=== PATIENT | female | born 1965 | race Caucasian/White ===

== ENCOUNTER 2016-10-24 07:52 | Emergency (ER) | payer BC ==
[~2016-10-24] VITALS: Ht 167.6 cm; Wt 90.9 kg
[~2016-10-24 07:52] MED LIST: ATARAX 25MG25 MG/TAB PO; CALCIUM CITRATE1 TA1 PO; CATAPRES 0.1MG0.1 MG PO; CATAPRES0.2 MG PO; CATAPRES0.3 MG PO; CELEXA 20MG20 MG/TAB PO; CELEXA40 MG PO; CENTRUM SILVER1 TAB; COZAAR100 MG PO; EFFEXOR 75M75 MG/TAB PO; FLEXERIL 1010 MG/TAB PO; HCTZ 25MG TAB25 MG PO; LEVAQUIN 5500 MG/TA1 PO; LORTAB 5/500 501 TAB; NABUMETONE500 MG PO; NATURE'S BLE1000 MCG PO; NEXIUM 40MG40 MG PO; NORVASC 10MG10 MG PO; PHENERGAN W/CO120 M1 PO; PREDNISONE10 MG PO; PROVENTIL0.09 MG/A1 IH; RT ADVAIR 528 DISKUS IH; RT ALBUTER2.5 MG/0.5 IH; RT SPIRIVA18 MCG IH; VICODIN 5/300 PO; VITAMIN B-1000 MCG/T PO; WELLBUTRIN XL150 MG PO; ZOLOFT 50MG50 MG PO
[2016-10-24 07:55] VITALS: TEMP 98
[2016-10-24] MEDS ORDERED: NORVASC 5MG5 MG/TAB PO (09:20)
[2016-10-24] MEDS ORDERED: NORCO 325 MG-51 TAB PO (10:07)
[2016-10-24 10:33] VITALS: BP 127/88; PULSE 70
== END 2016-10-24 10:33 | disposition home or self-care (01) ==
LOC: COL.ER 07:52
DX: I10 Essential (primary) hypertension (principal); R51 Headache; R11.0 Nausea; T50.2X6A Underdosing of carbonic-anhydrase inhibitors, benzothiadiazides and other diuretics, initial encounter
CPT/HCPCS: J1885; J2405; J2765; J7030

== ENCOUNTER 2018-01-08 11:14 | Emergency (ER) | payer BC ==
[~2018-01-08] VITALS: Ht 167.6 cm; Wt 85.9 kg
[~2018-01-08 11:14] MED LIST changes: +NORCO 325 MG-51 TAB PO; +NORVASC 5MG5 MG/TAB PO
[2018-01-08 11:25] VITALS: TEMP 99.1
[2018-01-08 11:55] VITALS: BP 144/98
[2018-01-08 13:32] VITALS: PULSE 91
== END 2018-01-08 13:33 | disposition home or self-care (01) ==
LOC: COL.ER 11:14
DX: G89.29 Other chronic pain (principal); M54.2 Cervicalgia; I10 Essential (primary) hypertension; G43.909 Migraine, unspecified, not intractable, without status migrainosus; F32.9 Major depressive disorder, single episode, unspecified; Z87.891 Personal history of nicotine dependence
CPT/HCPCS: J1885

== ENCOUNTER 2019-04-19 09:08 | Emergency (ER) | payer BC ==
[~2019-04-19] VITALS: Ht 167.6 cm; Wt 99.1 kg
[2019-04-19 09:15] VITALS: TEMP 98.3
[2019-04-19 11:56] LABS: BASO # 0.1 (0.0-0.2); BASO % 1.1 % (0.0-2.0); EOS # 0.2 (0.0-0.7); EOS % 5.2 % (0-4.0); GRAN # 2.4 (1.4-6.5); GRAN % 51.7 % (42.2-75.2); HEMATOCRIT 41.4 % (37.0-47.0); HEMOGLOBIN 14.4 g/dl (12.5-16.0); LYMPH # 1.7 (1.2-3.4); LYMPH % 37.1 % (20.0-51.0); MEAN CORPUSCULAR HEMOGLOBIN 37 pg (27.0-31.0); MEAN CORPUSCULAR HGB CONC 35 g/dl (33.0-37.0); MEAN PLATELET VOLUME 10.3 fl (7.4-10.4); MONO # 0.2 (0.1-0.6); MONO % 4.7 % (1.7-9.3); PLATELET COUNT 155 K/mm3 (130-400); RED BLOOD COUNT 3.93 M/mm3 (4.10-5.30); REDCELL DISTRIBUTION WIDTH-CV 12.6 % (11.5-14.5)
[2019-04-19 12:06] LABS: MEAN CELL VOLUME 105 fl (80.0-100.0)
[2019-04-19 12:08] LABS: ALBUMIN 3.8 gm/dL (3.5-5.0); BILIRUBIN,TOTAL 0.6 mg/dL (0.0-1.0); C-REACTIVE PROTEIN 0.6 mg/dL (0.0-0.9); CREATININE, serum 0.8 (0.52-1.25); POTASSIUM 3.6 mmol/L (3.4-5.0); TOTAL PROTEIN 6.7 gm/dL (6.4-8.2)
[2019-04-19] MEDS ORDERED: LEVAQUIN 750MG750 M1 PO (13:19)
[2019-04-19] MEDS ORDERED: PREDNISONE20 MG PO (13:19)
[2019-04-19 13:32] VITALS: BP 142/90; PULSE 71
== END 2019-04-19 13:32 | disposition home or self-care (01) ==
LOC: COL.ER 09:08
PROVIDERS: Physician Assistant
DX: J18.1 Lobar pneumonia, unspecified organism (principal); J44.1 Chronic obstructive pulmonary disease with (acute) exacerbation; I10 Essential (primary) hypertension; J44.9 Chronic obstructive pulmonary disease, unspecified; F32.9 Major depressive disorder, single episode, unspecified; Z90.710 Acquired absence of both cervix and uterus; Z87.891 Personal history of nicotine dependence; Z98.84 Bariatric surgery status
CPT/HCPCS: J7512

== ENCOUNTER 2019-04-29 11:14 | Emergency (ER) | payer OTHER ==
[~2019-04-29] VITALS: Ht 167.6 cm; Wt 99.1 kg
[~2019-04-29 11:14] MED LIST changes: +LEVAQUIN 750MG750 M1 PO; +PREDNISONE20 MG PO
[2019-04-29 11:20] VITALS: BP 123/86; PULSE 106; TEMP 96.4
[2019-04-29] MEDS ORDERED: NORCO 325 MG-51 TAB PO (11:41)
[2019-04-29] MEDS ORDERED: FLEXERIL 1010 MG/TAB PO (14:46)
== END 2019-04-29 15:22 | disposition home or self-care (01) ==
LOC: COL.ER 11:14
DX: S80.01XA Contusion of right knee, initial encounter (principal); S80.02XA Contusion of left knee, initial encounter; I10 Essential (primary) hypertension; F32.9 Major depressive disorder, single episode, unspecified; J44.9 Chronic obstructive pulmonary disease, unspecified; F17.210 Nicotine dependence, cigarettes, uncomplicated; R40.2412 Glasgow coma scale score 13-15, at arrival to emergency department; W01.0XXA Fall on same level from slipping, tripping and stumbling without subsequent striking against object, initial encounter; Y92.59 Other trade areas as the place of occurrence of the external cause

== ENCOUNTER 2020-07-29 15:41 | Outpatient (RCR) | payer SELFPAY ==
[~2020-07-29] VITALS: Ht 167.6 cm; Wt 97.1 kg
[2020-07-29] VITALS (10 sets, daily range): BP systolic 87–110; BP diastolic 52–87; PULSE 88–100; TEMP 98–98.6
== END 2020-07-29 21:14 | disposition home or self-care (01) ==
LOC: EUO 15:41
DX: D3A.8 Other benign neuroendocrine tumors (principal); D64.9 Anemia, unspecified; Z92.21 Personal history of antineoplastic chemotherapy
CPT/HCPCS: J1644; J7050; P9016

== ENCOUNTER 2020-08-17 13:25 | Inpatient (IN) | payer OTHER ==
[2020-08-17] VITALS (9 sets, daily range): BP systolic 153–172; BP diastolic 58–107; PULSE 77–89; TEMP 97.3–98.6
[~2020-08-17] VITALS: Ht 167.6 cm; Wt 88.5 kg
[2020-08-17 15:40] LABS: COLLECTION METHOD CLEAN CATCH
[2020-08-17 15:50] LABS: BUDDING YEAST Present /hpf; MUCOUS Present /lpf; PH 6 (5-8); SQUAMOUS EPITHELIAL None Seen /hpf; URINE APPEARANCE Turbid; URINE BACTERIA Rare /hpf; URINE BILIRUBIN Positive (NEGATIVE); URINE BLOOD Negative (NEGATIVE); URINE COLOR Amber; URINE GLUCOSE Negative (NEGATIVE); URINE KETONE Negative (NEGATIVE); URINE LEUKOCYTE ESTERASE 1+ (NEGATIVE); URINE NITRATE Negative (NEGATIVE); URINE PROTEIN(semi-quant) 1+ (NEGATIVE); URINE RBC None Seen /hpf; URINE UROBILINOGEN >=4.0 mg/dL (NEGATIVE)
[2020-08-17 16:50] LABS: MEAN CELL VOLUME 98 fl (80.0-100.0); MEAN CORPUSCULAR HGB CONC 30 g/dl (33.0-37.0); MEAN PLATELET VOLUME 10.2 fl (7.4-10.4); PLATELET COUNT 89 K/mm3 (130-400); RED BLOOD COUNT 2.17 M/mm3 (4.10-5.30); REDCELL DISTRIBUTION WIDTH-CV 18.8 % (11.5-14.5)
[2020-08-17 16:51] LABS: HEMATOCRIT 21.2 % (37.0-47.0); MEAN CORPUSCULAR HEMOGLOBIN 29 pg (27.0-31.0)
[2020-08-17 16:57] LABS: ALBUMIN 2.9 gm/dL (3.5-5.0); BILIRUBIN,TOTAL 1.9 mg/dL (0.0-1.0); CALCIUM 7.8 mg/dL (8.4-10.2); CREATININE, serum 0.48 (0.52-1.25); POTASSIUM 3.2 mmol/L (3.4-5.0); TOTAL PROTEIN 5.6 gm/dL (6.4-8.2)
[2020-08-17 17:00] LABS: HEMOGLOBIN 6.4 g/dl (12.5-16.0)
[2020-08-17 17:09] LABS: TROPONIN-I 0.031 ng/mL (0.000-0.035)
[2020-08-17 17:25] LABS: LACTIC ACID 1.4 mmol/L (0.4-2.0)
[2020-08-17 17:47] LABS: ANISOCYTOSIS 3+; LYMPHOCYTE 14 % (20.0-51.0); METAMYELOCYTE 1 % (0-0); MYELOCYTE 3 % (0-0); NEUTROPHILS 79 % (42.0-75.2); PLATELET ESTIMATE DECREASED (NORMAL); STOMATOCYTE 1+; TARGET CELLS 1+
[2020-08-17] MEDS ORDERED: NEXIUM 40MG40 MG PO (17:48)
[2020-08-17] MEDS ORDERED: DAZIDOX20 MG PO (17:49)
[2020-08-17 17:58] LABS: INR 1.4 (0.8-3.0); PROTHROMBIN TIME 16.1 SECONDS (9.7-12.8)
[2020-08-17] MEDS ORDERED: NORVASC 5MG5 MG/TAB PO (19:07)
[2020-08-18] VITALS (21 sets, daily range): BP systolic 109–143; BP diastolic 53–90; PULSE 64–138; TEMP 97.4–98.6
--- NOTE | 2020-08-18 00:42 | NUR ---
Pt refusing to finish bowel prep, approx 150mL consumed. EDER Richardson notified
[2020-08-18 00:46] LABS: HEMATOCRIT 24.8 % (37.0-47.0); HEMOGLOBIN 7.6 g/dl (12.5-16.0)
[2020-08-18 06:17] LABS: MEAN CELL VOLUME 96 fl (80.0-100.0); MEAN CORPUSCULAR HGB CONC 31 g/dl (33.0-37.0); MEAN PLATELET VOLUME 10.2 fl (7.4-10.4); PLATELET COUNT 86 K/mm3 (130-400); RED BLOOD COUNT 2.64 M/mm3 (4.10-5.30); REDCELL DISTRIBUTION WIDTH-CV 19.2 % (11.5-14.5)
[2020-08-18 06:24] LABS: HEMATOCRIT 25.3 % (37.0-47.0); HEMOGLOBIN 7.8 g/dl (12.5-16.0); MEAN CORPUSCULAR HEMOGLOBIN 30 pg (27.0-31.0)
[2020-08-18 06:27] LABS: ALBUMIN 2.9 gm/dL (3.5-5.0); BILIRUBIN,TOTAL 2.1 mg/dL (0.0-1.0); CALCIUM 7.5 mg/dL (8.4-10.2); CREATININE, serum 0.46 (0.52-1.25); MAGNESIUM 2.5 mg/dL (1.6-2.3); POTASSIUM 3.6 mmol/L (3.4-5.0); TOTAL PROTEIN 5.8 gm/dL (6.4-8.2)
--- NOTE | 2020-08-18 08:15 | NUR ---
Patient resting in bed. Rates pain 06/30. Home dose of oxycodone given per orders. Patient refused hctz & clonidine.
--- NOTE | 2020-08-18 09:45 | NUR ---
Tap water enema complete per doctor massey. yellow water output. patietn did not complete go Dr. Deirdre tate aware.
--- NOTE | 2020-08-18 10:09 | NUR ---
JOSIAS met with the patient to discuss discharge plan. The patient lives in [place] with her father, Aashish. She states that she moved back here from [place] in June. She reports needing occasional assistance with ADLs and has a walker. She states that she normally manages on her own or her aunt, Tatiana, helps her. The patient's PCP is Dr. Moiz Villalpando and she receives her medications from [facility] in [place]. The patient is self pay. She states that she has been utilizing [facility] for her medications. Financial Counseling was consulted and plan is to complete a Medicaid application. JOSIAS discussed this with the patient and presented the Release of Information Forms. The patient is interested in applying for Medicaid and signed the forms. JOSIAS faxed the forms to Anita with financial Counseling. The patient does not have a DPOA-HC, but she was interested in completing one. JOSIAS provided the patient with a form. She designated her brother, Ramez Mckay (ph#[phone]), and her cousin, Arelis Mcghee (ph#[phone]), as the alternate. Ramez lives in [place] and Arelis lives in [place]. JOSIAS and SURGERY SCHEDULER, Alize, witnessed the patient's signature. JOSIAS provided her with the original and some copies. JOSIAS placed a copy in the patient's chart. The patient plans to return home with her father upon discharge. JOSIAS then contacted and reviewed the above information with the patient's brother, Ramez. Ramez states that he thought the patient already applied for Medicaid. JOSIAS informed Anita with [facility] of this. Ramez reports no concerns with the patient returning back home, as long as the patient is okay with this. JOSIAS to continue to follow.
--- NOTE | 2020-08-18 11:42 | NUR ---
First visit from the pole truck driver. No needs right now.
--- NOTE | 2020-08-18 12:00 | NUR ---
Patient to Endo with Aurelia, Ns to gravity. Patient seems medicated after roxicodone, not drowsy though. Reports pain releif
--- NOTE | 2020-08-18 13:35 | NUR ---
ROUNDED. BLAND DIET ORDERED. SENAIT BULK WITH PALLATIVE CARE MADE AWARE OF CONSULT.
--- NOTE | 2020-08-18 13:35 | NUR ---
PATIENT REQUEST DIET. KENZIE VIGIL NOTIFED. CLEARS ORDER. K+ REPLACEMENT PER PROTOCOL. PATIENT REPORTS FEELING BETTER AFTER COLONSCOPY.
--- NOTE | 2020-08-18 14:17 | NUR ---
Initial visit; Patient thanked Pneumatic Tube Operator for stopping in and offering God's blessings.
--- NOTE | 2020-08-18 14:30 | NUR ---
HOSPITALIST NOTIFED. ORDERS FOR EKG. STUDIO ENGINEER CALLED, REPORTS AFIB WITH RVR.
--- NOTE | 2020-08-18 14:32 | NUR ---
I met with pt at bedside this afternoon to discuss her situation and goals of care. She is very anxious about getting started on treatment but also realizes that she will also need to have medicaid/SSI/disabilitiy to help with the costs. She is very firm that she does want to pursue treatment--even knowing that this treatment will not be a cure but rather a way to manage the cancer. Chemotherapy is not without side effects and her decision must be based on what is important to her--quality vs quantity. She has made contact with Dr De La Rosa and has another appt there on the . She is waiting on some decisions from [facility] about her situation as well. Her nurse also reported that she was in AFib with RVR now right after this conversation. She will continue to consider what her goals are but she is reporting wanting treatment.
--- NOTE | 2020-08-18 14:45 | NUR ---
HOSPITALIST HAS NO NEW ORDERS AT THIS TIME, MONITOR PATIENT CLOSELY.
--- NOTE | 2020-08-18 14:50 | NUR ---
STATUS UPDATE ON PATIENT GIVEN TO KENZIE VIGIL. PATIENT DIAPHORETIC. REPORTS BEING HOT. SEE VITALS.
--- NOTE | 2020-08-18 15:15 | NUR ---
SPOKE TO HOSPITALIST, PATIENT TO TRANSFER TO ICU. CAPTAIN CANNERY TENDER TO GET BED ASSIGNMENT. SECOND EKG PER ORDERS
[2020-08-18 15:58] LABS: TROPONIN-I 0.019 ng/mL (0.000-0.035)
--- NOTE | 2020-08-18 16:04 | NUR ---
Per orders Cardizem Qtt started at this time. VS currently 119/[id number]% on RA. Patient is resting and without distress at this time. Will continue to montior VS and medication rate
[2020-08-18 16:17] LABS: THYROID STIMULATING HORMONE 2.99 uIU/mL (0.465-4.680)
--- NOTE | 2020-08-18 16:45 | NUR ---
PT. UP TO AND FROM BR SB ASSIST; VOIDED AND BACK TO BED NOT USING O2 AND SATS AT 83-85% ON ROOM AIR SO O2/NC RESTARTED ONCE IN BED.
--- NOTE | 2020-08-18 17:20 | NUR ---
Patient remains on drip at 5mls/hr. Blood pressure stable. senior engineering tech called and reports normal sinus rhythm.
--- NOTE | 2020-08-18 19:16 | NUR ---
Patient blood pressure stable. Cardizem drip continues per orders 5 ml.hr. Patient ordered dinner, awaiting tray. Patient reports elevated pain, roxicodone per orders. Patietn Iv lasix has taken effect and voided x4 since receiving, trying to keep accurate I&O. Bedside report to Yao ferguson
--- NOTE | 2020-08-18 19:45 | NUR ---
Pt. sitting up in bed at this time. Pt. is A&OX3, assessment complete. Port to rt. chest patent. Pt. Denies pain or other needs, call light within reach.
[2020-08-19] VITALS (14 sets, daily range): BP systolic 101–147; BP diastolic 59–82; PULSE 68–125; TEMP 97.4–98.7
[2020-08-19 07:02] LABS: MEAN CELL VOLUME 95 fl (80.0-100.0); MEAN CORPUSCULAR HGB CONC 31 g/dl (33.0-37.0); MEAN PLATELET VOLUME 10.5 fl (7.4-10.4); PLATELET COUNT 102 K/mm3 (130-400); RED BLOOD COUNT 2.72 M/mm3 (4.10-5.30); REDCELL DISTRIBUTION WIDTH-CV 19.8 % (11.5-14.5)
[2020-08-19 07:03] LABS: HEMATOCRIT 25.8 % (37.0-47.0); HEMOGLOBIN 7.9 g/dl (12.5-16.0); MEAN CORPUSCULAR HEMOGLOBIN 29 pg (27.0-31.0)
[2020-08-19 07:16] LABS: ALANINE AMINOTRANSFERASE 75 U/L (4-34); ALBUMIN 2.9 gm/dL (3.5-5.0); ALKALINE PHOSPHATASE 785 U/L (50-136); ANION GAP 4 mmol/L (7-16); AST,SGOT 85 U/L (15-37); BILIRUBIN,TOTAL 1.5 mg/dL (0.0-1.0); BLOOD UREA NITROGEN 7 mg/dL (7-17); CALCIUM 7.3 mg/dL (8.4-10.2); CARBON DIOXIDE 35 mmol/L (22-30); CHLORIDE 98 mmol/L (98-107); CREATININE, serum 0.56 (0.52-1.25); GLUCOSE 98 mg/dL (74-106); MAGNESIUM 1.9 mg/dL (1.6-2.3); SODIUM 136 mmol/L (137-145); TOTAL PROTEIN 5.8 gm/dL (6.4-8.2)
[2020-08-19 07:22] LABS: TROPONIN-I < 0.012 ng/mL (0.000-0.035)
[2020-08-19 08:26] LABS: BAND 1 % (0-10); EOSINOPHIL 1 % (0-4); LYMPHOCYTE 21 % (20.0-51.0); METAMYELOCYTE 2 % (0-0); NEUTROPHILS 71 % (42.0-75.2)
[2020-08-19 08:27] LABS: PLATELET ESTIMATE DECREASED (NORMAL)
[2020-08-19 08:28] LABS: ANISOCYTOSIS 2+
[2020-08-19 08:29] LABS: TEAR DROP CELLS 1+
[2020-08-19 08:31] LABS: HYPOCHROMIA 1+
--- NOTE | 2020-08-19 20:17 | NUR ---
Patient resting in bed. She continues to have slight confusion at times. Hospitalist aware. Patient thought she was discharging home & had her ride come pick her up( she send her ride home once when we again reviewed plan of care and answered questions). Patient tolerated her progression to PO Cardizem. Tele remains on, vitals stable. Port to INT. She has tolerated diet without nausea. She was thankful to work with therapy this am, but refused this afternoon.
--- NOTE | 2020-08-19 21:50 | NUR ---
Pt. sitting up in bed at this time. Pt. is A&OX3, assessment complete. Port to rt. chest. Dressing Changed to PORT at this time. Pt. tolerated well. Pt. request pain meds with evening meds. Will give per orders. Pt. denies further needs, call light within reach.
--- NOTE | 2020-08-19 22:55 | NUR ---
Telel tech called to report Pt.'s heart rate in the 180's for 12 beat run, vitals taken at this time. BP-123/58, OP2-97 with 2l nc, heart rate fluxuating 80's to 120's at this time. EDER Au notified. Order for EKG placed. Will monitor.
[2020-08-20 01:14] VITALS: BP 129/83; PULSE 97; TEMP 97.6
[2020-08-20 06:50] LABS: MEAN CELL VOLUME 96 fl (80.0-100.0); MEAN CORPUSCULAR HGB CONC 31 g/dl (33.0-37.0); MEAN PLATELET VOLUME 9.9 fl (7.4-10.4); PLATELET COUNT 107 K/mm3 (130-400); RED BLOOD COUNT 2.66 M/mm3 (4.10-5.30); REDCELL DISTRIBUTION WIDTH-CV 19.5 % (11.5-14.5)
[2020-08-20 06:58] LABS: ALBUMIN 2.9 gm/dL (3.5-5.0); BILIRUBIN,TOTAL 1.4 mg/dL (0.0-1.0); CALCIUM 7.5 mg/dL (8.4-10.2); CREATININE, serum 0.63 (0.52-1.25); MAGNESIUM 1.9 mg/dL (1.6-2.3); TOTAL PROTEIN 5.7 gm/dL (6.4-8.2)
[2020-08-20 07:03] LABS: HEMATOCRIT 25.5 % (37.0-47.0); HEMOGLOBIN 7.8 g/dl (12.5-16.0); MEAN CORPUSCULAR HEMOGLOBIN 29 pg (27.0-31.0)
[2020-08-20 07:30] VITALS: BP 131/70; PULSE 77; TEMP 97.9
--- NOTE | 2020-08-20 10:00 | NUR ---
Patient alert and oriented, answers questions appropriately. See assessment. Abdomen soft, non tender, non distended. Bowel sounds active x4 quads. +Flatus. No bloody stools since yesterday. No c/o at this time.
[2020-08-20 11:23] VITALS: BP 103/52; PULSE 67; TEMP 97.5
[2020-08-20 16:32] VITALS: BP 125/82; PULSE 64; TEMP 97.7
[2020-08-20 20:30] VITALS: BP 114/54; PULSE 68; TEMP 98
--- NOTE | 2020-08-20 23:56 | NUR ---
Respiratory therapy notified me that patient had taken off her oxygen and her oxygen dropped down in the 80s. I educated patient on the importance of keeping her oxygen on and will continue to go check on patient to ensure she is wearing oxygen. Patient has no other complaints. Call light is in reach.
[2020-08-21] VITALS (7 sets, daily range): BP systolic 91–117; BP diastolic 45–68; PULSE 48–64; TEMP 97.5–98.1
[2020-08-21] MEDS ORDERED: TOPROL XL 50MG50 MG PO (06:48)
[2020-08-21] MEDS ORDERED: PROTONIX 40MG T40 MG PO (06:49)
[2020-08-21] MEDS ORDERED: LASIX 40MG TABL40 MG PO (06:49)
[2020-08-21] MEDS ORDERED: CARDIZEM CD360 MG PO (06:49)
[2020-08-21] MEDS ORDERED: NYSTATIN OR100 MU/ML PO (06:50)
[2020-08-21] MEDS ORDERED: DIFLUCAN200 MG PO (06:51)
[2020-08-21 07:06] LABS: MEAN CELL VOLUME 97 fl (80.0-100.0); MEAN CORPUSCULAR HGB CONC 30 g/dl (33.0-37.0); MEAN PLATELET VOLUME 10.8 fl (7.4-10.4); PLATELET COUNT 119 K/mm3 (130-400); RED BLOOD COUNT 2.76 M/mm3 (4.10-5.30)
[2020-08-21 07:18] LABS: CALCIUM 7.7 mg/dL (8.4-10.2); CREATININE, serum 0.93 (0.52-1.25); POTASSIUM 4.3 mmol/L (3.4-5.0)
[2020-08-21 07:22] LABS: HEMATOCRIT 26.8 % (37.0-47.0); MEAN CORPUSCULAR HEMOGLOBIN 29 pg (27.0-31.0)
[2020-08-21 08:31] LABS: BAND 4 % (0-10); LYMPHOCYTE 24 % (20.0-51.0); NEUTROPHILS 69 % (42.0-75.2); PLATELET ESTIMATE DECREASED (NORMAL)
[2020-08-21 08:32] LABS: ANISOCYTOSIS 1+; HYPOCHROMIA 1+
[2020-08-21] MEDS ORDERED: OXYGEN NASAL.CANN (11:41)
[2020-08-21] MEDS ORDERED: NORVASC 5MG5 MG/TAB PO (11:45)
--- NOTE | 2020-08-21 12:16 | NUR ---
JOSIAS informed patient would be discharding today 08/21/2020. JOSIAS informed patient would need home O2, obtained orders, spoke to patient after PA talked to patient about importance of having O2 at home. Patient initially refused O2, until after conversation. SW spoke to patient about company of choice to utilize. [employer] contacted, documents faxed to agency. Patient to discharge after obtaining DC planning information and [facility] education. Nothing further.
--- NOTE | 2020-08-21 12:19 | NUR ---
SW informed HH recommended for patient. SW spoke with patient in regards to services and patient states that she would like to obtain the list of services, but did not want to move forward with obtaining services at this time. Nurse informed of patient's statement. Nurse provided that she would inform PA about patient's refusal of HH services at this current time. Nothing further.
--- NOTE | 2020-08-21 16:48 | NUR ---
JOSIAS informed that patient's brother Ramez wanted to talk to SW. Brother states that he is concerned about patient going home due to lack of capacity to take care of self. Brother states that he feels that patient should go to a facility. SW provided that physican deemed patient compotent enough to be discharged home with home O2 and home health services. (Patient refused home health services at this time) Brother requested to speak to the phsician assistant operations manager. PA called brother and further provided previously mentioned stated. Brother states that he is concerned that patient will not take meds. Brother provides that patient can come to his home, but not return to their father's home at this time due to father (Aashish) being elderly. SW spoke to patient about what she had the desire to do and patient states that she does not want to go to her brothers house. SW called patient's father and father states that patient is unable to return at this time. SW informed patient of information and assisted with finding another placement. Patient is self pay. [facility]. JOSIAS informed patient of this information and patient refused this placement and stated that she has a friend that she is going to call by tomorrow to pick her up. SW informed nurse, PA, and Physician in regards to all communication held in regards to patient and plan of care. Patient did refuse O2 even after [facility] brought up O2 PA assisted with conversation about the importance of having O2. Also patient may not be able to afford medications up on DC, voucher can be utilized if needed. SW will follow up.
--- NOTE | 2020-08-21 20:30 | NUR ---
WITH PTS APPROVAL, SPOKE WITH CORY ADAM (FRIEND) [phone] REGARDING PTS STATUS, CONDITION AND PENDING DISCHARGE. CORY REPORTS PT USED TO LIVE WITH HER IN [place], ONCE PT WAS DIAGNOSED WITH THE CANCER, PTS FAMILY CAME TO [place] AND BROUGHT HER TO [place] WITH THEM. CORY IS GOING TO REACH OUT TO PTS FAMILY TONIGHT AND KEEP STAFF UPDATED.
--- NOTE | 2020-08-21 21:36 | NUR ---
Patient resting in bed. She requested a pain pill for pain down her left side. Administered 20 mg oxycodone per orders with her night medications. Patient not complying with wearing her oxygen. Educated on the importance of keeping her oxygen on. Will continue to check on her and make sure she is wearing her oxygen.
[2020-08-22 04:10] VITALS: BP 106/61; PULSE 58; TEMP 97.2
[2020-08-22 06:08] LABS: MEAN CELL VOLUME 97 fl (80.0-100.0); MEAN CORPUSCULAR HGB CONC 30 g/dl (33.0-37.0); MEAN PLATELET VOLUME 10.5 fl (7.4-10.4); PLATELET COUNT 117 K/mm3 (130-400); RED BLOOD COUNT 2.64 M/mm3 (4.10-5.30); REDCELL DISTRIBUTION WIDTH-CV 19.1 % (11.5-14.5)
--- NOTE | 2020-08-22 06:16 | NUR ---
Patient resting in bed. States she is waiting for a phone call from a friend. Patient slept throughout the night with minimal complaints. Caps changed on her port.
[2020-08-22 06:17] LABS: HEMATOCRIT 25.5 % (37.0-47.0); HEMOGLOBIN 7.6 g/dl (12.5-16.0); MEAN CORPUSCULAR HEMOGLOBIN 29 pg (27.0-31.0)
[2020-08-22 06:19] LABS: CALCIUM 7.9 mg/dL (8.4-10.2); CREATININE, serum 1.41 (0.52-1.25); POTASSIUM 4.4 mmol/L (3.4-5.0)
[2020-08-22 06:41] LABS: BAND 8 % (0-10); LYMPHOCYTE 20 % (20.0-51.0); NEUTROPHILS 67 % (42.0-75.2); PLATELET ESTIMATE DECREASED (NORMAL)
[2020-08-22 06:47] LABS: ANISOCYTOSIS 1+; HYPOCHROMIA 1+
[2020-08-22 08:29] VITALS: BP 102/62; PULSE 56; TEMP 97.6
--- NOTE | 2020-08-22 12:02 | NUR ---
PAC deaccessed at this time, tolerated well.
--- NOTE | 2020-08-22 12:21 | NUR ---
Several times throughout the morning, upon entering room, patient has not had oxygen on. Re-educated on need for oxygen, verbalizes understanding. Patient continues to take oxygen off several times. Upon discharge, patient refused to wear oxygen. Re-educated patient on oxygen use, patient does allow nasal cannula to be put in place, but mumbles about not going to use it all the time. Discharge paperwork reviewed with patient, spoke with brother about discharge medications. Discharged via wheelchair to auto/home with brother at 1223.
--- NOTE | 2020-08-24 14:08 | NUR ---
pull worker spoke with patient's brother, Ramez Leiva [phone] and discussed the limited to no options for housing for patient, at this time as patient does not have insurance. Worker confirmed that Anita, financial counselor, has completed and sent in a Medicaid application. Anita will work with patient and Ramez to complete a FAA, financial assistance application to help with securing oxygen at home. Worker emailed a copy of newly made durable power of estate planning attorney for health care. Worker spoke with medical social worker, Mini, at Dr Villalpando's office and advised of the above information. Worker emailed a copy of durable power of estate planning attorney to Mini. Mini states that patient will see Dr Villalpando today at 3:30. Worker discussed concern that patient may not be able secure nursing facility or home health until patient obtains medicaid insurance. Patient's brother states it is difficult to manage patient's care in his home.
== END 2020-08-22 12:23 | disposition home or self-care (01) | DRG 368 ==
LOC: COL.ER 13:25 → SURG 17:54
PROVIDERS: Internal Medicine; Internal Medicine Gastroenterology; Physician Assistant; ADMIT Student in an Organized Health Care Education/Training Program
PROC: 0DB58ZX Excision of Esophagus, Via Natural or Artificial Opening Endoscopic, Diagnostic (ICD-10-PCS; principal; 2020-08-18 11:00)
PROC: 0DJD8ZZ Inspection of Lower Intestinal Tract, Via Natural or Artificial Opening Endoscopic (ICD-10-PCS; 2020-08-18 11:00)
DX: K21.01 Gastro-esophageal reflux disease with esophagitis, with bleeding (principal); J96.01 Acute respiratory failure with hypoxia; K57.31 Diverticulosis of large intestine without perforation or abscess with bleeding; C34.90 Malignant neoplasm of unspecified part of unspecified bronchus or lung; C78.7 Secondary malignant neoplasm of liver and intrahepatic bile duct; G93.40 Encephalopathy, unspecified; N39.0 Urinary tract infection, site not specified; E87.3 Alkalosis; I50.32 Chronic diastolic (congestive) heart failure; D62 Acute posthemorrhagic anemia; A09 Infectious gastroenteritis and colitis, unspecified; R62.7 Adult failure to thrive; R07.81 Pleurodynia; E87.6 Hypokalemia; E83.42 Hypomagnesemia; I48.91 Unspecified atrial fibrillation; F32.9 Major depressive disorder, single episode, unspecified; B37.9 Candidiasis, unspecified; I27.20 Pulmonary hypertension, unspecified; D69.6 Thrombocytopenia, unspecified; D50.9 Iron deficiency anemia, unspecified; E87.70 Fluid overload, unspecified; Z87.891 Personal history of nicotine dependence; Z20.828 Contact with and (suspected) exposure to other viral communicable diseases; Z68.34 Body mass index [BMI] 34.0-34.9, adult
CPT/HCPCS: 99223-AI; 99232-AI; 99233-AI; 99239; C9113; J1644; J1940; J2405; J2704; J3010; J3475; J7030; P9016

== ENCOUNTER 2020-08-24 16:48 | Emergency (ER) | payer OTHER ==
[~2020-08-24] VITALS: Ht 167.6 cm; Wt 90.0 kg
[~2020-08-24 16:48] MED LIST changes: +CARDIZEM CD360 MG PO; +DAZIDOX20 MG PO; +DIFLUCAN200 MG PO; +LASIX 40MG TABL40 MG PO; +NYSTATIN OR100 MU/ML PO; +OXYGEN NASAL.CANN; +PROTONIX 40MG T40 MG PO; +TOPROL XL 50MG50 MG PO
[2020-08-24 17:07] VITALS: TEMP 97.5
[2020-08-24 18:08] LABS: MEAN CELL VOLUME 95 fl (80.0-100.0); MEAN CORPUSCULAR HGB CONC 31 g/dl (33.0-37.0); MEAN PLATELET VOLUME 9.9 fl (7.4-10.4); PLATELET COUNT 108 K/mm3 (130-400); RED BLOOD COUNT 2.75 M/mm3 (4.10-5.30); REDCELL DISTRIBUTION WIDTH-CV 19.9 % (11.5-14.5)
[2020-08-24 18:19] LABS: ALBUMIN 2.7 gm/dL (3.5-5.0); BILIRUBIN,TOTAL 1.8 mg/dL (0.0-1.0); CALCIUM 8.3 mg/dL (8.4-10.2); CREATININE, serum 0.58 (0.52-1.25); POTASSIUM 3.2 mmol/L (3.4-5.0); TOTAL PROTEIN 5.6 gm/dL (6.4-8.2)
[2020-08-24 18:23] LABS: HEMATOCRIT 26.1 % (37.0-47.0); HEMOGLOBIN 8.1 g/dl (12.5-16.0); MEAN CORPUSCULAR HEMOGLOBIN 29 pg (27.0-31.0)
[2020-08-24 18:55] LABS: COLLECTION METHOD CLEAN CATCH
[2020-08-24 18:58] LABS: ANISOCYTOSIS 3+; BAND 1 % (0-10); EOSINOPHIL 1 % (0-4); LYMPHOCYTE 13 % (20.0-51.0); METAMYELOCYTE 1 % (0-0); MYELOCYTE 2 % (0-0); NEUTROPHILS 72 % (42.0-75.2); POLYCHROMASIA 1+; STOMATOCYTE 1+
[2020-08-24 19:11] LABS: MUCOUS Present /lpf; PH 5 (5-8); SQUAMOUS EPITHELIAL None Seen /hpf; URINE APPEARANCE Clear; URINE BACTERIA Rare /hpf; URINE BILIRUBIN Negative (NEGATIVE); URINE BLOOD 3+ (NEGATIVE); URINE COLOR Yellow; URINE GLUCOSE Negative (NEGATIVE); URINE KETONE Negative (NEGATIVE); URINE LEUKOCYTE ESTERASE Negative (NEGATIVE); URINE NITRATE Negative (NEGATIVE); URINE PROTEIN(semi-quant) Negative (NEGATIVE); URINE WBC 0-2 /hpf
[2020-08-24 21:15] VITALS: BP 119/61; PULSE 71
== END 2020-08-24 21:15 | disposition home or self-care (01) ==
LOC: COL.ER 16:48
PROVIDERS: Nurse Practitioner Primary Care
DX: D64.9 Anemia, unspecified (principal); C78.7 Secondary malignant neoplasm of liver and intrahepatic bile duct; I27.20 Pulmonary hypertension, unspecified; F32.9 Major depressive disorder, single episode, unspecified; I48.91 Unspecified atrial fibrillation; Z87.891 Personal history of nicotine dependence